=== PATIENT | male | born 1960 | race Caucasian/White ===

== ENCOUNTER 2020-08-27 08:35 | Emergency (ER) | payer BC, OTHER ==
[~2020-08-27] VITALS: Ht 162.6 cm; Wt 74.8 kg
[2020-08-27 08:40] VITALS: BP 161/95
[2020-08-27 09:14] LABS: APPEARANCE,URINE CLOUDY (CLEAR); BILIRUBIN,URINE NEGATIVE (NEGATIVE); BLOOD, URINE 3+ (NEGATIVE); COLOR,URINE DARK YELLOW (YELLOW); LEUKOCYTE ESTERASE ,URINE NEGATIVE (NEGATIVE); NITRITE, URINE NEGATIVE (NEGATIVE); UGLUCOSE NEGATIVE (NEGATIVE)
[2020-08-27 09:16] LABS: BASOPHILS % (AUTO) 0.8 % (0.0-2.0); EOSINOPHILS # (AUTO) 0.8 K/uL (0-0.4); EOSINOPHILS % (AUTO) 14.2 % (0.0-4.0); HEMATOCRIT 44.5 % (36-52); HEMOGLOBIN 15.2 g/dL (12.0-18.0); MEAN CORPUSCULAR HEMOGLOBIN 33 pg (27-31); MEAN CORPUSCULAR HGB CONC 34 g/dL (33-37); MEAN CORPUSCULAR VOLUME 95.3 fL (80-94); MONOCYTES # (AUTO) 0.5 K/uL (0.8-1.0); MONOCYTES % (AUTO) 9.2 % (1.7-9.3); NEUTROPHILS # (AUTO) 2.3 K/uL (1.8-7.7); NEUTROPHILS % (AUTO) 40.8 % (42.2-75.2); PLATELET COUNT (AUTO) 275 K/uL (140-450); RED BLOOD CELL COUNT(AUTO) 4.67 MIL/uL (4.20-6.10); RED CELL DISTRIBUTION WIDTH 13.5 % (11.6-13.7); WHITE BLOOD COUNT (AUTO) 5.7 K/uL (4.8-10.8)
--- NOTE | 2020-08-27 09:16 | NUR ---
60 YEAR OLD MALE COMPLAINS OF HEMATURIA X TODAY. PATIENT ALSO COMPLAINS OF SUPRAPUVIC PAIN X 4 DAYS. PAIN 6/10, CONTINUOUS, LOCAL, DULL. PER PATIENT, PROSTATE SURGERY TOOK PLACE ABOUT 7 YEARS AGO, NO UROLOGIST FOLLOW UP. PATIENT DENIES, LOWER BACK TENDERNESS, DIFFICULTY URINATING, BURNING SENSATION, UNAWARE OF CURRENT UTI, DENIES FORCE WITH EXCERTION WHEN URINATING OR PREVIOUS HEMATURIA. AO4, BRETAHING EVEN AND UNLABORED, SKIN WARM AND DRY. PMH - PROSTATE SURGERY 7 YEARS AGO [facility]
[2020-08-27 09:32] LABS: RBC,URINE >100 /HPF (0-5); WBC,URINE 0-5 /HPF (0-5)
[2020-08-27 09:34] LABS: ALBUMIN 3.9 g/dL (3.4-5.0); ANION GAP 9.9 (8-16); CARBON DIOXIDE 28.1 mmol/L (21-32); CREATININE 0.8 mg/dL (0.6-1.3); TOTAL BILIRUBIN 0.4 mg/dL (0.0-1.0)
[2020-08-27 10:13] VITALS: BP 161/95
--- NOTE | 2020-08-27 10:14 | NUR ---
Patient discharged with v/s stable. Written and verbal after care instructions ABOUT HEMATURIA given and explained. Patient verbalized understanding. Ambulatory with steady gait. All questions addressed prior to discharge. Advised to follow up with PMD.
== END 2020-08-27 10:14 | disposition home or self-care (01) ==
LOC: MED 08:35
DX: R31.9 Hematuria, unspecified (principal); R03.0 Elevated blood-pressure reading, without diagnosis of hypertension; Z90.79 Acquired absence of other genital organ(s)
CPT/HCPCS: 36415; 80053; 81001; 85025; 87086; 99283